=== PATIENT | male | born 1980 | race Caucasian/White ===

== ENCOUNTER 2016-11-02 17:41 | Emergency (ER) | payer SELFPAY ==
[~2016-11-02] VITALS: Ht 177.8 cm; Wt 103.4 kg
[2016-11-02] MEDS ORDERED: IBUPROFEN 600 MG TABLET PO ONE (17:45)
[2016-11-02 17:59] VITALS: BP 125/84; PULSE 112; RESP 17; TEMP 98; O2SAT 97
--- NOTE | 2016-11-02 18:10 | NUR ---
Patient triaged and placed in waiting room. VSS and patient appears in no acute distress at this time. Accompanied by self, awaiting available bed, and MD notified of need for MSE.
--- NOTE | 2016-11-02 18:25 | NUR ---
Pt to bed 8, report given to MALIK Urena
--- NOTE | 2016-11-02 18:30 | NUR ---
Pt brought in by BLS transport in stable condition. Pt c/o right foot pain 7/10 s/p falling after a dog attacked him. Pt stated that his neighbor's dog tried to attack his dog so pt fell to the ground and kicked the neighbor's dog. Pt c/o right arm pain. -ko. No acute distress noted at this time, will continue to monitor
--- NOTE | 2016-11-02 18:53 | NUR ---
ER at bedside examining patient.
--- NOTE | 2016-11-02 18:55 | NUR ---
Pt refused Motrin. Pt stated that his ankle pain is tolerable at this time.
--- NOTE | 2016-11-02 19:07 | NUR ---
Pt advised by Dr. Tellez that he has a possible fracture and will need a splint and crutches. Pt does not want the splint because he will be unable to drive. 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 Addendum: 11/02/16 at 2209 by [email or web address] Pt refused splint and crutches even after discussing with Dr. Tellez
[2016-11-02 19:25] VITALS: BP 125/84; PULSE 95; RESP 17; TEMP 98; O2SAT 97
--- NOTE | 2016-11-02 19:25 | NUR ---
Patient does not wish to proceed with medical care recommended by Dr. Tellez. Patient given information related to possible complications, up to and including , which could occur as a result of leaving hospital at this time. Patient verbalizes understanding of risks involved leaving against medical advice. Patient has signed AMA form.
--- NOTE | 2016-11-02 19:30 | NUR ---
Vivian goodwin in ED - 11/02/16 at 2209 by [email or web address] Pt refused crutches to assist w/ walking. Dr. Tellez is aware
== END 2016-11-02 19:25 | disposition left against medical advice (07) ==
LOC: SED 17:41
DX: S82.891A Other fracture of right lower leg, initial encounter for closed fracture (principal); W01.0XXA Fall on same level from slipping, tripping and stumbling without subsequent striking against object, initial encounter; Y93.89 Activity, other specified; Y92.89 Other specified places as the place of occurrence of the external cause; Y99.8 Other external cause status
CPT/HCPCS: 99284

== ENCOUNTER 2016-11-03 17:22 | Emergency (ER) | payer SELFPAY ==
[~2016-11-03] VITALS: Ht 177.8 cm; Wt 103.4 kg
[2016-11-03 17:22] VITALS: BP 145/71; PULSE 84; RESP 19; TEMP 97.2; O2SAT 99
--- NOTE | 2016-11-03 17:22 | NUR ---
BROUGHT BACK TO BED #3 AND TRIAGED. REPORT GIVEN TO MARIYA. PT IS AMBULATORY WITH STEADY GAIT
--- NOTE | 2016-11-03 17:23 | NUR ---
Pt here for c/0 right foot/ankle pain, was here yesterday, had x ray done here, but refused to get splint. Pt signed AMA yesterday. Pt is here today wanting the splint, and c/o 01/01 to left ankle/foot. Pt is waiting for MD to assess.
--- NOTE | 2016-11-03 17:25 | NUR ---
Dr Adams at bedside examining patient
[2016-11-03 19:20] VITALS: BP 142/71; PULSE 84; RESP 19; TEMP 97.2; O2SAT 99
--- NOTE | 2016-11-03 19:27 | NUR ---
Patient given written and verbal discharge instructions and verbalizes understanding. ER MD discussed with patient the results and treatment provided. Given copies of tests performed in ER. Patient in stable condition. ID arm band removed. Patient educated on pain management and to follow up with PMD. Pain Scale 0/10 . Opportunity for questions provided and answered.
== END 2016-11-03 19:27 | disposition home or self-care (01) ==
LOC: SED 17:22
DX: S90.112A Contusion of left great toe without damage to nail, initial encounter (principal); R03.0 Elevated blood-pressure reading, without diagnosis of hypertension; E78.5 Hyperlipidemia, unspecified; Z90.49 Acquired absence of other specified parts of digestive tract; W19.XXXA Unspecified fall, initial encounter; Y93.89 Activity, other specified; Y99.8 Other external cause status; Y92.89 Other specified places as the place of occurrence of the external cause
CPT/HCPCS: 99284